=== PATIENT | female | born 1965 | race Caucasian/White ===

== ENCOUNTER 2021-03-21 08:47 | Emergency (ER) | payer OTHER ==
[~2021-03-21] VITALS: Ht 160 cm; Wt 68.0 kg
[2021-03-21] MEDS ORDERED: IBUPROFEN 800800 MG PO (09:50)
[2021-03-21] MEDS ORDERED: PENICILLIN VK500 MG PO (09:50)
[2021-03-21 10:08] VITALS: BP 127/77
== END 2021-03-21 10:09 | disposition home or self-care (01) ==
LOC: M.ERS 08:47
DX: K04.7 Periapical abscess without sinus (principal)